=== PATIENT | female | born 1995 | race Caucasian/White ===

== ENCOUNTER 2017-12-08 12:10 | Inpatient (IN) | payer OTHER ==
[2017-12-08] MEDS ORDERED: METHYLERGONOVINE 0.2 MG INJ IM (13:00)
[2017-12-08] MEDS ORDERED: LIDOCAINE 1% (MPF) 30 ML INJ INJ (13:00)
[2017-12-08] MEDS ORDERED: MISOPROSTOL 200 MCG TAB PR (13:00)
[2017-12-08] MEDS ORDERED: OXYTOCIN 30 UNITS/LR 500 ML IV ×2 (13:00)
[2017-12-08] MEDS ORDERED: CARBOPROST 250 MCG INJ IM (13:00)
[2017-12-08] MEDS: AMPICILLIN 2 GM/NS (PMX) 100 ML IV (13:21)
[2017-12-08 13:35] LABS: ADD MAN DIFF? NO
[2017-12-08 13:38] LABS: WHITE BLOOD COUNT 10.2 10^3/ul (4.8-10.8)
[2017-12-08 13:38] LABS: BASOPHILS % 0.3 % (0.0-2.0); EOSINOPHILS % 0.3 % (0.0-7.0); HEMATOCRIT 39.7 % (37.0-47.0); HEMOGLOBIN 13.9 g/dl (12.0-16.0); LYMPHOCYTES # 2.5 10^3/ul (0.8-2.9); LYMPHOCYTES % 24.8 % (15.0-51.0); MEAN CORPUSCULAR VOLUME 85.6 fl (82.0-101.0); MEAN PLATELET VOLUME 11.1 fl (7.4-10.4); MONOCYTE # 0.6 10^3/ul (0.3-0.9); MONOCYTES % 6.2 % (0.0-11.0); NEUTROPHIL # 6.9 10^3/ul (1.6-7.5); NEUTROPHILS % 67.3 % (39.0-77.0); PLATELET COUNT 261 10^3/UL (140-415); RED BLOOD COUNT 4.64 10^6/ul (4.20-5.40); RED CELL DISTRIBUTION WIDTH 13.2 % (11.5-14.5)
[2017-12-08] MEDS: SOD CHLORIDE 0.9% 1,000 ML IV (13:44)
[2017-12-08 13:53] LABS: INR 1.02; PROTIME 13.5 Sec (11.9-14.9); PT RATIO 1.1
[2017-12-08 14:02] LABS: PARTIAL THROMBOPLASTIN TIME 27.6 Sec (25.0-35.0)
[2017-12-08 14:27] LABS: HEPATITIS B SURFACE ANTIGEN NEGATIVE (NEGATIVE)
[2017-12-08] MEDS: DINOPROSTONE 10 MG VAG SUPP VAG (16:28)
[2017-12-08] MEDS: AMPICILLIN 1 GM/NS (PMX) 50 ML IV ×2 (17:08→20:54)
[2017-12-08] MEDS: LACTATED RINGER'S 1,000 ML IV ×2 (19:51→20:51)
[2017-12-08 21:39] LABS: ADD UMIC YES; UR ASCORBIC ACID NEGATIVE (NEGATIVE); UR BILIRUBIN (Dip) NEGATIVE (NEGATIVE); UR BLOOD (Dip) 3+ mg/dL (NEGATIVE); UR CLARITY CLEAR (CLEAR); UR COLOR YELLOW (YELLOW); UR GLUCOSE (Dip) NEGATIVE (NEGATIVE); UR KETONES (Dip) 1+ mg/dL (NEGATIVE); UR LEUKOCYTE ESTERASE (Dip) 3+ Leu/ul (NEGATIVE); UR NITRITE (Dip) NEGATIVE (NEGATIVE); UR RBC 14 /HPF (0-5); UR SPECIFIC GRAVITY (Dip) 1.009 (1.003-1.030); UR SQUAMOUS EPITHELIAL CELL FEW /HPF (FEW); UR TOTAL PROTEIN (Dip) NEGATIVE (NEGATIVE); UR UROBILINOGEN (Dip) NEGATIVE (NEGATIVE); UR WBC 7 /HPF (0-5)
[2017-12-08 22:02] LABS: AMPHETAMINE/METHAMPHETAMINE Negative (NEGATIVE); BARBITURATES Negative (NEGATIVE); BENZODIAZEPINES Negative (NEGATIVE); CANNABINOIDS Negative (NEGATIVE); COCAINE Negative (NEGATIVE); OPIATES Negative (NEGATIVE)
[2017-12-08 22:39] LABS: RAPID PLASMA REAGIN NONREACTIVE (NR)
[2017-12-09] MEDS: OXYTOCIN 30 UNITS/LR 500 ML IV ×2 (00:34→05:36)
[2017-12-09] MEDS: BUTORPHANOL 2 MG INJ IV ×2 (03:03→05:43)
[2017-12-09] MEDS: LACTATED RINGER'S 1,000 ML IV (04:50)
[2017-12-09] MEDS: IBUPROFEN 600 MG TAB PO ×4 (06:30→23:31)
[2017-12-09] MEDS ORDERED: CARBOPROST 250 MCG INJ IM (07:30)
[2017-12-09] MEDS ORDERED: ZOLPIDEM 5 MG TAB PO (07:30)
[2017-12-09] MEDS ORDERED: SENNA/DOCUSATE NA (8.6MG/50MG) TAB PO (07:30)
[2017-12-09] MEDS ORDERED: OXYTOCIN 30 UNITS/LR 500 ML IV (07:30)
[2017-12-09] MEDS ORDERED: METHYLERGONOVINE 0.2 MG INJ IM (07:30)
[2017-12-09] MEDS ORDERED: MISOPROSTOL 200 MCG TAB PR (07:30)
[2017-12-09] MEDS: SENNA/DOCUSATE NA (8.6MG/50MG) TAB PO ×2 (09:00→20:31)
[2017-12-09] MEDS: WITCH HAZEL/GLYCERIN PAD PR (11:02)
[2017-12-09] MEDS: LANOLIN 7 GM TUBE TOP (11:03)
[2017-12-09] MEDS: BENZOCAINE 20% 56 ML SPRAY TOP (11:03)
[2017-12-10] MEDS: IBUPROFEN 600 MG TAB PO ×3 (05:34→17:39)
[2017-12-10 08:27] LABS: ADD MAN DIFF? NO
[2017-12-10 08:34] LABS: BASOPHIL # 0.1 10^3/ul (0.0-0.1); BASOPHILS % 0.4 % (0.0-2.0); EOSINOPHILS # 0.1 10^3/ul (0.0-0.5); EOSINOPHILS % 0.5 % (0.0-7.0); HEMATOCRIT 33.8 % (37.0-47.0); HEMOGLOBIN 11.6 g/dl (12.0-16.0); LYMPHOCYTES # 3.9 10^3/ul (0.8-2.9); MEAN CORPUSCULAR HEMOGLOBIN 29.8 pg (29.0-33.0); MEAN CORPUSCULAR HGB CONC 34.3 g/dl (32.0-37.0); MEAN CORPUSCULAR VOLUME 86.9 fl (82.0-101.0); MONOCYTE # 0.8 10^3/ul (0.3-0.9); MONOCYTES % 6.5 % (0.0-11.0); NEUTROPHIL # 7.6 10^3/ul (1.6-7.5); NEUTROPHILS % 60.9 % (39.0-77.0); PLATELET COUNT 227 10^3/UL (140-415); RED BLOOD COUNT 3.89 10^6/ul (4.20-5.40); RED CELL DISTRIBUTION WIDTH 13.8 % (11.5-14.5)
[2017-12-10 08:34] LABS: WHITE BLOOD COUNT 12.5 10^3/ul (4.8-10.8)
[2017-12-10] MEDS: SENNA/DOCUSATE NA (8.6MG/50MG) TAB PO ×2 (09:14→20:35)
[2017-12-10] MEDS: INFLUENZA VIRUS VACCINE 0.5 ML (DISPENSING) IM* (09:16)
[2017-12-10] MEDS: OXYCODONE/ASPIRIN (4.88/325) TAB PO (20:35)
[2017-12-11] MEDS: IBUPROFEN 600 MG TAB PO ×3 (00:07→11:52)
[2017-12-11] MEDS: SENNA/DOCUSATE NA (8.6MG/50MG) TAB PO (09:03)
[2017-12-11] MEDS: DIPHTH/TET/ACEL PERTUSS (ADULT) 0.5 ML VIAL IM* (11:53)
[2017-12-11 12:07] LABS: RUBELLA ANTIBODY - IGG 1.04 index; RUBELLA ANTIBODY - IGM <20.00 AU/mL
[2017-12-11] MEDS: WITCH HAZEL/GLYCERIN PAD PR (12:11)
[2017-12-11] MEDS: BENZOCAINE 20% 56 ML SPRAY TOP (12:11)
[2017-12-11] MEDS: LANOLIN 7 GM TUBE TOP (12:11)
== END 2017-12-11 13:38 | disposition home or self-care (01) | DRG 775 ==
LOC: L-D 12:10 → PP1 12-09 08:45 → L-D 14:17
PROVIDERS: Obstetrics & Gynecology
PROC: 10E0XZZ Delivery of Products of Conception, External Approach (ICD-10-PCS; principal; 2017-12-09)
DX: O48.0 Post-term pregnancy (principal); Z37.0 Single live birth; Z3A.40 40 weeks gestation of pregnancy
CPT/HCPCS: 76815; 80307; 81001; 82962; 85025; 85610; 85730; 86592; 86762; 86850; 86900; 86901; 87340; 90686; 90715